=== PATIENT | female | born 1970 | race Caucasian/White ===

== ENCOUNTER 2017-04-09 15:19 | Emergency (ER) | payer BC ==
[2017-04-09] MEDS: ACETAMINOPHEN 500 MG TAB PO (20:44)
[2017-04-09 21:26] LABS: ADD MAN DIFF? NO
[2017-04-09 21:52] LABS: INR 0.93; PROTIME 12.5 Sec (11.9-14.9)
[2017-04-09 21:53] LABS: PARTIAL THROMBOPLASTIN TIME 28.1 Sec (25.0-35.0)
[2017-04-09 21:56] LABS: ALANINE AMINOTRANSFERASE 37 IU/L (13-69); ALBUMIN 4.4 g/dl (3.3-4.9); ALBUMIN/GLOBULIN RATIO 1.57; ALKALINE PHOSPHATASE 90 IU/L (42-121); ANION GAP 14 (8-16); ASPARTATE AMINO TRANSFERASE 31 IU/L (15-46); BLOOD UREA NITROGEN 14 mg/dl (7-20); CALCIUM 9.5 mg/dl (8.4-10.2); CARBON DIOXIDE 28 mmol/L (21-31); CHLORIDE 107 mmol/L (97-110); CREATININE 0.61 mg/dl (0.44-1.00); GLUCOSE 80 mg/dl (70-220); POTASSIUM 3.8 mmol/L (3.5-5.1); SODIUM 145 mmol/L (135-144); TOTAL PROTEIN 7.2 g/dl (6.1-8.1)
[2017-04-09 22:07] LABS: WHITE BLOOD COUNT 5.7 10^3/ul (4.8-10.8)
[2017-04-09 22:07] LABS: BASOPHILS % 0.4 % (0.0-2.0); EOSINOPHILS # 0.1 10^3/ul (0.0-0.5); EOSINOPHILS % 1.1 % (0.0-7.0); HEMATOCRIT 34.9 % (37.0-47.0); HEMOGLOBIN 11.4 g/dl (12.0-16.0); LYMPHOCYTES # 2.2 10^3/ul (0.8-2.9); MEAN CORPUSCULAR HEMOGLOBIN 28.5 pg (29.0-33.0); MEAN CORPUSCULAR HGB CONC 32.7 g/dl (32.0-37.0); MEAN CORPUSCULAR VOLUME 87.3 fl (82.0-101.0); MEAN PLATELET VOLUME 10.2 fl (7.4-10.4); MONOCYTE # 0.4 10^3/ul (0.3-0.9); MONOCYTES % 6.7 % (0.0-11.0); NEUTROPHILS % 52.6 % (39.0-77.0); PLATELET COUNT 294 10^3/UL (140-415); RED CELL DISTRIBUTION WIDTH 13.4 % (11.5-14.5)
== END 2017-04-09 22:30 | disposition home or self-care (01) ==
LOC: FTE 15:19
DX: S80.01XA Contusion of right knee, initial encounter (principal); W18.39XA Other fall on same level, initial encounter; Y92.9 Unspecified place or not applicable
CPT/HCPCS: 36415; 73562; 80053; 85025; 85610; 85730; 93971; 99284-25

== ENCOUNTER 2017-06-25 23:37 | Emergency (ER) | payer BC ==
[2017-06-26] MEDS: LORAZEPAM 1 MG TAB PO (00:39)
== END 2017-06-26 01:34 | disposition home or self-care (01) ==
LOC: FTE 23:37
DX: R20.0 Anesthesia of skin (principal); M79.661 Pain in right lower leg
CPT/HCPCS: 93971; 99284-25

== ENCOUNTER 2018-01-09 19:23 | Emergency (ER) | payer BC ==
[2018-01-09] MEDS: KETOROLAC 60 MG INJ IM (20:04)
== END 2018-01-09 20:33 | disposition home or self-care (01) ==
LOC: FTE 19:23
DX: J02.9 Acute pharyngitis, unspecified (principal); Z21 Asymptomatic human immunodeficiency virus [HIV] infection status
CPT/HCPCS: 96372; 99284-25

== ENCOUNTER 2018-06-23 20:21 | Emergency (ER) | payer BC ==
[2018-06-23] MEDS: METOCLOPRAMIDE 10 MG INJ IV (22:00)
[2018-06-23] MEDS: SOD CHLORIDE 0.9% 1,000 ML IV (22:00)
[2018-06-23] MEDS: DIPHENHYDRAMINE 50 MG INJ IV (22:01)
[2018-06-23] MEDS: KETOROLAC 30 MG INJ IV (22:01)
[2018-06-23] MEDS: MECLIZINE 12.5 MG TAB PO (22:01)
== END 2018-06-24 00:31 | disposition home or self-care (01) ==
LOC: FTE 06-24 00:31
DX: R42 Dizziness and giddiness (principal); R51 Headache; Z21 Asymptomatic human immunodeficiency virus [HIV] infection status
CPT/HCPCS: 81025; 93005; 96361; 96374; 96375; 99284-25

== ENCOUNTER → 2018-08-08 | Outpatient (CLI) | payer BC | END | disposition home or self-care (01) | LOC: HKI 15:42 | DX: M25.551 Pain in right hip (principal); M79.604 Pain in right leg; R20.0 Anesthesia of skin; R20.2 Paresthesia of skin; M71.9 Bursopathy, unspecified; M54.16 Radiculopathy, lumbar region | CPT/HCPCS: 73502 ==